=== PATIENT | male | born 1945 | race Caucasian/White ===

== ENCOUNTER 2018-09-01 10:21 | Outpatient (CLI) | payer MEDICARE, BC ==
--- NOTE | 2018-09-01 12:36 | CT ---
LOW DOSE CT CHEST FOR LUNG CANCER SCREENING: FINDINGS: There is a 5 mm nodule in the lingula. Minimal scarring is seen in the right mid lobe. No pleural o r pericardial effusions are seen. There are vascular calcifications without evidence of aneurysmal d ilatation of the abdominal aorta. A 1 cm right paratracheal lymph node is seen in the mediastinum. There are degenerative changes in the spine. IMPRESSION: Lung-RADS category 2-Benign appearance and behavior. Nodules with a very low likelihood of becoming clinically active cancer due to size. The probability of malignancy is less than 1%. RECOMMENDATIONS: Continue annual screening with LDCT in 12 months. POS: [facility]
== END 2018-09-01 10:22 | disposition home or self-care (01) ==
LOC: CT 10:21
PROVIDERS: ATTEND Family Medicine
DX: F17.210 Nicotine dependence, cigarettes, uncomplicated (principal); R91.8 Other nonspecific abnormal finding of lung field
CPT/HCPCS: G0297

== ENCOUNTER 2018-09-07 09:21 | Outpatient (CLI) | payer MEDICARE, BC ==
--- NOTE | 2018-09-07 11:25 | ULT ---
ABDOMINAL AORTIC ULTRASOUND WITH ROSADO SCALE AND DOPPLER COLOR FLOW IMAGING: Date: 09/07/18 CLINICAL INDICATION: Abdominal aortic aneurysm screening evaluation. FINDINGS: Sonographic evaluation using Rosado scale and Doppler color flow of the abdominal aorta does not reveal evidence of an aortic aneurysm. There is mild atherosclerotic irregularity. Abdominal aortic diamete r measures up to approximately 2.4 cm as demonstrated. IMPRESSION: No aneurysmal dilatation of the abdominal aorta is demonstrated. POS: [facility]
== END 2018-09-07 09:22 | disposition home or self-care (01) ==
LOC: BICULT 09:21
PROVIDERS: ATTEND Family Medicine
DX: Z13.6 Encounter for screening for cardiovascular disorders (principal)
CPT/HCPCS: 76775

== ENCOUNTER 2019-06-29 11:05 | Outpatient (CLI) | payer MEDICARE, BC ==
[2019-06-29] MEDS ORDERED: Iopamidol 370 76% 100 ML VIAL ONE (11:41)
--- NOTE | 2019-06-29 15:58 | CT ---
CT ANGIO OF CHEST PERFOREMD WITH INTRAVENOUS CONTRAST ENHANCEMENT WITH 3D RECONSTRUCTIONS: 06/29/19 HISTORY: Cough, shortness of breath, elevated D-dimer. COMPARISON: A 09/01/18 low dose lung scan. Patient has a history of nicotine dependence. There has been development of some patchy ground glass opacities in both upper lobe with more conflue nt parenchymal change having developed within the lingula. There is a mild left pleural effusion demo nstrated. There is some mild mediastinal adenopathy. This includes some paratracheal nodes, some of which are c alcified and prevascular nodes, this appears to be of fairly similar appearance to the prior study. Nodes and azygoesophageal recess are also noted and small hilar nodes are seen. The thoracic aorta is normal ion caliber. There is good pulmonary artery opacification and there is no CT evidence for pulmonary embolus. The visualized liver parenchyma shows no focal findings. The adrenal glands are partially visualized and have a slightly hyperplastic appearance. IMPRESSION: 1. No CT evidence for pulmonary embolus. 2. Patchy ground glass opacities in both lung weaver. These changes would suggest a pneumonic ty pe process. There is also a mild left pleural effusion. Changes are more confluent in the lingular re gion. POS: [facility]
== END 2019-06-29 11:06 | disposition home or self-care (01) ==
LOC: CT 11:05
PROVIDERS: ATTEND Physician Assistant
DX: R06.02 Shortness of breath (principal); R05 Cough; F17.200 Nicotine dependence, unspecified, uncomplicated; R79.1 Abnormal coagulation profile; R91.8 Other nonspecific abnormal finding of lung field
CPT/HCPCS: 71275; 80048; 85025; 85379; Q9967

== ENCOUNTER 2019-08-22 16:29 | Inpatient (IN) | payer MEDICARE, BC ==
--- NOTE | 2019-08-22 16:46 | RAD ---
Portable chest: HISTORY: Cough COMPARISON: none FINDINGS: Lung weaver are clear. Heart and mediastinum appear unremarkable. Vascularity is normal. Visualized osseous structures unremarkable. IMPRESSION: No acute finding
[2019-08-22 17:10] LABS: #Lymphocytes 0.9 thou/uL (1.20-3.40); #Monocytes 0.8 thou/uL (0.11-0.59); #Neutrophils 4.1 thou/uL (1.40-6.50); %Basophils 0.4 % (0.0-1.0); %Eosinophils 0.3 % (0.0-10.0); %Lymphocytes 15.2 % (21.0-51.0); %Monocytes 14.3 % (0.0-10.0); %Neutrophils 69.8 % (42.0-75.0); Hemoglobin 14.8 g/dL (14.0-18.0); Mean Corpuscular HGB CONC 34.2 g/dL (32.0-36.0); Mean Corpuscular Volume 93.8 fL (78.0-98.0); Mean Platelet Volume 8.1 fL (7.4-10.4); Platelet Count 168 thou/uL (130-400); RBC Distribution Width 11.8 % (11.5-14.5); Red Blood Cell (RBC) Count 4.62 mill/uL (4.70-6.10); White Blood Cell (WBC) Count 5.8 thou/uL (4.8-10.8)
[2019-08-22] MEDS ORDERED: cefTRIAXone\\ROCEPHIN 2 GM VIAL ONE (17:29)
[2019-08-22 17:37] LABS: ALT (SGPT) 22 U/L (8-55); AST (SGOT) 23 U/L (5-34); Albumin 4.7 g/dL (3.4-4.8); Alkaline Phosphatase 61 U/L (40-110); Anion Gap 15 mmol/L (10-20); BUN (Urea Nitrogen) 10 mg/dL (8.4-25.7); Bilirubin, Total 0.5 mg/dL (0.2-1.2); Calc. Creatinine Clearance 0 mL/min (70-130); Calcium 9.2 mg/dL (7.8-10.44); Carbon Dioxide 22 mmol/L (23-31); Chloride 99 mmol/L (98-107); Estimated GFR-MDRD 65; Globulin 2.9 g/dL (2.4-3.5); Glucose 116 mg/dL (83-110); Potassium 3.8 mmol/L (3.5-5.1); Protein, Total 7.6 g/dL (5.8-8.1); Sodium 132 mmol/L (136-145)
[2019-08-22 18:03] LABS: Bacteria/HPF None Seen HPF (None Seen); Bilirubin Negative (Negative); Blood, Urine 1+ (Negative); Clarity Clear (Clear); Glucose, Urine (Dipstick) Normal (Negative); Leukocyte Negative Leu/uL (Negative); Nitrite Negative (Negative); Protein, Urine (Dipstick) 70 mg/dL (Neg-Trace); RBC/HPF 0-3 HPF (0-3); Squamous Epithelial 0-3 HPF (0-3); Urobilinogen Normal mg/dL (Less than 2); WBC/HPF 0-3 HPF (0-3)
[2019-08-22 18:10] LABS: CKMB 0.7 ng/mL (0-6.6)
[2019-08-22] MEDS ORDERED: Aspirin 325 MG TAB ONE (18:22)
[2019-08-22] MEDS ORDERED: Azithromycin 500 MG VIAL ONE (18:24)
[2019-08-22] MEDS ORDERED: Sodium Chloride 0.9% 1,000 ML IV SCH ×2 (19:38→19:46)
[2019-08-22] MEDS ORDERED: HYDROcodone/Acetaminophen 5/325 mg Tablet PO PRN ×2 (19:38)
[2019-08-22] MEDS ORDERED: Acetaminophen 325 MG TAB PO PRN (19:38)
[2019-08-22] MEDS ORDERED: Ondansetron PF 4 MG/2 ML Vial IVP PRN ×2 (19:38→19:46)
[2019-08-22] MEDS ORDERED: Ondansetron ODT 4 MG TAB SL PRN (19:38)
[2019-08-22] MEDS ORDERED: Guaifenesin DM 100-10/5 ML UDCUP PO PRN (19:46)
[2019-08-22] MEDS ORDERED: Ondansetron ODT 4 MG TAB PO PRN (19:46)
[2019-08-22] MEDS ORDERED: Senokot S 8.6-50 MG TAB PO PRN (19:46)
[2019-08-22] MEDS ORDERED: Acetaminophen 650 MG Suppository PR PRN (19:46)
[2019-08-22 19:51] VITALS: BMI 27.1
--- NOTE | 2019-08-22 19:55 | HP ---
PRIMARY CARE PHYSICIAN: Dr. Laurie Wong. CHIEF COMPLAINT: Fevers, chills, and cough. HISTORY OF PRESENT ILLNESS: This is a 74-year-old white male with a known history of moderate aortic stenosis, hypertension, and hyperlipidemia, who presents with about a 1-week history of cough, congestion, and body aches. He had not noticed any fevers at home, but today, he started to become a little bit confused and aching all over. brought him into an urgent care. There, he was noted to have fever, chills, tachycardia, and was flu A positive. The patient was transferred to our emergency room here. Here, he was found to be room air hypoxic, was breathing better on oxygen. The ER doctor noted crackles in the right mid lung and bilateral bases. Chest x-ray was clear, but there was concern for possible development of a complicating pneumonia, so the patient is being admitted to the hospital. History is taken from the patient, but confirmed with his , who is at the bedside as he is a little slow to respond and mildly confused, although still oriented to where he is, the date, and the situation. PAST MEDICAL HISTORY: 1. Aortic valve stenosis, progressed to moderate recently, followed by Dr. Bhakta. 2. Hypertension. 3. Hyperlipidemia. PAST SURGICAL HISTORY: 1. Left carotid endarterectomy. 2. Colonoscopy with previous polypectomy. 3. Surgery for bleeding rectal fissures. SOCIAL HISTORY: The patient is a smoker, smokes 1 pack per day. He does drink some beer and liquor. No drug use. He is and lives with his . He is a full code. His 's name is Olga Moise. She is his medical decision maker. FAMILY HISTORY: Dad had emphysema and hypertension. ALLERGIES: NO KNOWN DRUG ALLERGIES. CURRENT MEDICATIONS: 1. Aspirin 81 mg daily. 2. Amlodipine 10 mg daily. 3. Gabapentin 100 mg at night. 4. Livalo 2 mg daily. 5. Vitamin D3 of 1000 units daily. 6. Magnesium, unknown dose daily. 7. Multivitamin daily. 8. Statin, unknown name and dose once daily. REVIEW OF SYSTEMS: CONSTITUTIONAL: See HPI. EYES: No double vision or blurred vision currently. He did have a little bit of blurred vision earlier in the day. ENT: He has had a mild amount of nasal drip and a mild sore throat. CARDIOVASCULAR: No chest pain. No palpitations or racing heart. PULMONARY: See HPI. No wheezing or chest tightness. Gastrointestinal: No abdominal pain. No nausea or vomiting. He has had decreased appetite, not willing to eat anything at all today. He did drink some coffee. No diarrhea or constipation. GENITOURINARY: No dysuria or hematuria. MUSCULOSKELETAL: Generalized muscle aches. SKIN: No rashes or lesions he has noted. NEUROLOGIC: No numbness, tingling, or focal weakness. Just generalized weakness and fatigue. PSYCHIATRIC: The patient is feeling a little confused, but no hallucinations. PHYSICAL EXAMINATION: VITAL SIGNS: Blood pressure 126/81, pulse 108, respirations 20, temperature currently 100.2, O2 saturations 93% on 2 L. GENERAL: This is a well-developed, well-nourished, elderly male, in no acute distress. HEENT: Pupils are equal, round, and reactive to light. Oropharynx is clear without lesions, erythema, or exudate. LUNGS: The patient has some scattered crackles, worse on the right; especially in the right mid lung, there are a few crackles that were not present on the left, but good air movement throughout. He does have intermittent cough. ABDOMEN: Soft. Nontender to palpation. Normoactive bowel sounds. No hepatosplenomegaly or other masses. EXTREMITIES: No clubbing, cyanosis, or edema. SKIN: No rashes or lesions noted. NEUROLOGIC: The patient is moving all extremities equally and has no facial droop. PSYCHIATRIC: He is a little bit restless. He is trying to sleep, but easily arousable. He is oriented to person, to place, to situation, and to the date, month, and year. LABORATORY DATA: CBC within normal limits. Complete metabolic panel notable for sodium of 132, carbon dioxide of 22, glucose of 116. The rest was normal. Lactic acid was negative. Creatine kinase was normal. Troponin was indeterminate at 0.038. CK-MB was negative. Brain natriuretic peptide was negative. Urinalysis was negative for infection. IMAGING STUDIES: Chest x-ray, I did review the chest x-ray along with the radiologist's report. It does show no evidence of infiltrate or edema in the lungs. Normal cardiac silhouette. Normal chest x-ray. ASSESSMENT: 1. Influenza A with sepsis. The patient is getting some confusion from this also. Clinically, dehydrated on admission, but now, much better after fluids. The patient is having symptoms for a week, but given the severity of symptoms, while he is being hospitalized, we will go ahead and start him on oseltamivir. There is a concern for possible development of pneumonia with the findings on physical exam in his lung weaver. Given that his chest x-ray is negative and white count is normal, I suspect that these findings are due to the influenza, but we will recheck a chest x-ray in the morning to see if something fluffs out. If nothing fluffs out, we do not need to continue the antibiotics started in the emergency room and can just continue the supportive care and Tamiflu. 2. Moderate aortic stenosis. No evidence of volume overload at this time. 3. Hypertension. We will resume the patient's home blood pressure medications. 4. Gastrointestinal prophylaxis. Put the patient on Pepcid twice a day. 5. Deep venous thrombosis prophylaxis. We will put the patient on Lovenox while he is in the hospital. 6. Acute metabolic encephalopathy, mild, likely due to the flu, fever, and sepsis. We will monitor for worsening or improvement with treatment. CODE STATUS: The patient is a full code. His medical decision maker is his , Olga Moise. Job ID: [id number]
[2019-08-22] MEDS ORDERED: Oseltamivir 75 MG CAP PO SCH (21:00)
[2019-08-22] MEDS: Famotidine 20 MG TAB PO SCH (21:01)
[2019-08-22] MEDS: Oseltamivir 75 MG CAP PO SCH (21:02)
[2019-08-23] MEDS ORDERED: Melatonin 3 MG TAB PO SCH (00:15)
[2019-08-23] MEDS: Acetaminophen 325 MG TAB PO PRN ×3 (00:17→16:13)
[2019-08-23] MEDS ORDERED: Furosemide 40 MG/4 ML VIAL ONE (00:36)
[2019-08-23 00:42] LABS: #Lymphocytes 1.1 thou/uL (1.20-3.40); #Monocytes 0.7 thou/uL (0.11-0.59); #Neutrophils 6.1 thou/uL (1.40-6.50); %Basophils 0.2 % (0.0-1.0); %Eosinophils 0.1 % (0.0-10.0); %Lymphocytes 14.2 % (21.0-51.0); %Monocytes 9.2 % (0.0-10.0); %Neutrophils 76.2 % (42.0-75.0); Hemoglobin 14.3 g/dL (14.0-18.0); Mean Corpuscular HGB CONC 34.5 g/dL (32.0-36.0); Mean Corpuscular Hemoglobin 32.4 pg (27.0-31.0); Mean Corpuscular Volume 93.9 fL (78.0-98.0); Platelet Count 156 thou/uL (130-400); RBC Distribution Width 11.7 % (11.5-14.5); Red Blood Cell (RBC) Count 4.42 mill/uL (4.70-6.10)
[2019-08-23 00:54] LABS: CO2 Tension 27.1 mmHg (35.0-45.0); pH, Arterial 7.47 (7.35-7.45)
[2019-08-23 00:56] LABS: Actual Bicarbonate (HCO3a) 19.4 mEq/L (22-28); Base Excess (BEa) -2.8 mEq/L (-2.0 to +3.0)
[2019-08-23 00:56] LABS: Lactic Acid 1.1 mmol/L (0.5-2.2)
--- NOTE | 2019-08-23 00:56 | PDOC.EVN ---
Event Note - Event Note Event Note: RN called - Pt in resp distress. CXR/ABG reviewed. Will transfer to [facility] for NIPPV Update - Cardizem drip started for Afib with RVR - Later dced due to sinus pauses
[2019-08-23 00:57] LABS: Calcium, Ionized 1.04 mmol/L (1.12-1.30); Potassium - ABG Lab 3.71 mmol/L (3.70-5.30); Puncture Site LBR
[2019-08-23 00:58] LABS: ALV-art Gradient 261.365 (0-20)
[2019-08-23 01:02] LABS: Anion Gap 13 mmol/L (10-20); BUN (Urea Nitrogen) 9 mg/dL (8.4-25.7); Calc. Creatinine Clearance 97 mL/min (70-130); Calcium 8.3 mg/dL (7.8-10.44); Carbon Dioxide 21 mmol/L (23-31); Chloride 101 mmol/L (98-107); Estimated GFR-MDRD 85; Glucose 111 mg/dL (83-110); Magnesium 1.8 mg/dL (1.6-2.6); Potassium 3.8 mmol/L (3.5-5.1); Sodium 131 mmol/L (136-145)
[2019-08-23] MEDS ORDERED: Norepinephrine 8 MG/0.9% NS 0 ML ONE (01:55)
[2019-08-23] MEDS: Sodium Chloride 0.9% 1,000 ML IV SCH (02:06)
[2019-08-23] MEDS ORDERED: Diltiazem 125 MG in Sodium Chloride 0.9% 100 ML IVPB SCH (03:45)
[2019-08-23] MEDS ORDERED: Magnesium 2 GM/50 ML 2 GM in Premix Bag 1 BAG IVPB SCH (03:45)
[2019-08-23 04:02] LABS: #Monocytes 0.8 thou/uL (0.11-0.59); #Neutrophils 5.7 thou/uL (1.40-6.50); %Basophils 0.3 % (0.0-1.0); %Eosinophils 0.1 % (0.0-10.0); %Lymphocytes 13.6 % (21.0-51.0); %Monocytes 10.8 % (0.0-10.0); %Neutrophils 75.1 % (42.0-75.0); Hemoglobin 14.2 g/dL (14.0-18.0); Mean Corpuscular HGB CONC 33.5 g/dL (32.0-36.0); Mean Corpuscular Hemoglobin 31.8 pg (27.0-31.0); Mean Corpuscular Volume 94.9 fL (78.0-98.0); Platelet Count 152 thou/uL (130-400); RBC Distribution Width 11.7 % (11.5-14.5); Red Blood Cell (RBC) Count 4.46 mill/uL (4.70-6.10); White Blood Cell (WBC) Count 7.6 thou/uL (4.8-10.8)
[2019-08-23 04:28] LABS: Anion Gap 11 mmol/L (10-20); BUN (Urea Nitrogen) 9 mg/dL (8.4-25.7); Calc. Creatinine Clearance 87 mL/min (70-130); Calcium 8.1 mg/dL (7.8-10.44); Carbon Dioxide 25 mmol/L (23-31); Chloride 100 mmol/L (98-107); Estimated GFR-MDRD 74; Glucose 121 mg/dL (83-110); Potassium 3.7 mmol/L (3.5-5.1); Sodium 132 mmol/L (136-145)
[2019-08-23 06:29] LABS: CKMB 3.5 ng/mL (0-6.6)
[2019-08-23] MEDS ORDERED: Atropine Sulfate 1 mg/1 ml Vial IVP PRN (06:36)
--- NOTE | 2019-08-23 07:43 | PDOC.HOSPP ---
- Subjective Encounter Date: 08/23/19 Encounter Time: 07:42 Subjective: Mr. Moise was seen today in follow-up of influenza and atrial fibrillation. He was moved to the ICU due to AFIB with RVR. After being placed on Cardizem he developed long pauses. Currently he is off cardizem srip, and his heart rate is in the 80's and 90's. - Objective Vital Signs & Weight: Vital Signs (12 hours) Temp Pulse Resp BP Pulse Ox 08/23/19 04:00 99.2 F 08/23/19 02:42 77 26 H 98 08/23/19 01:17 99.2 F 95 08/23/19 00:00 99.2 F 93 20 119/55 L 93 L 08/22/19 20:05 96 Weight Weight 199 lb 14.4 oz Most Recent Monitor Data Heart Rate from ECG 97 NIBP 112/77 NIBP BP-Mean 88 Respiration from ECG 28 SpO2 98 I&O: 08/22/19 08/23/19 08/24/19 06:59 06:59 06:59 Intake Total 376.1 Output Total 725 Balance -348.9 Result Diagrams: 08/23/19 03:29 08/23/19 03:29 Hospitalist ROS - Medication Medications: Active Medications Generic Name Dose Route Start Last Admin Trade Name Freq PRN Reason Stop Dose Admin Acetaminophen 650 mg 08/22/19 19:46 08/23/19 00:17 Tylenol PO 650 mg Q4H PRN Administration Headache/Fever/Mild Pain (1-3) Albuterol/Ipratropium 3 ml 08/23/19 02:30 08/23/19 02:41 Duoneb NEB 3 ml [id number] CARLO Administration Famotidine 20 mg 08/22/19 21:00 08/22/19 21:01 Pepcid PO 20 mg BID CARLO Administration Guaifenesin/Dextromethorphan 15 ml 08/22/19 19:46 08/22/19 22:30 Robitussin Dm PO 15 ml Q4H PRN Administration Cough Sodium Chloride 1,000 mls @ 30 mls/hr 08/23/19 00:55 08/23/19 02:06 Normal Saline 0.9% IV 1,000 mls .Q24H CARLO Administration Oseltamivir Phosphate 75 mg 08/22/19 21:00 08/22/19 21:02 Tamiflu PO 08/27/19 09:01 75 mg BID CARLO Administration Sodium Chloride 10 ml 08/22/19 21:00 08/22/19 21:02 Flush - Normal Saline IVF Not Given Q12HR CARLO - Exam Eye: PERRL Heart: RRR, II/IV Respiratory: CTAB (with the exception of rales at the bases) Gastrointestinal: soft, non-tender, non-distended, normal bowel sounds, no palpable masses, no hepatomegaly, no splenomegaly Extremities: no cyanosis, no clubbing, no edema Skin: no rashes Hosp A/P (1) Influenza A Code(s): J10.1 - FLU DUE TO OTH IDENT INFLUENZA VIRUS W OTH RESP MANIFEST Status: Acute (2) Acute respiratory failure with hypoxia Code(s): J96.01 - ACUTE RESPIRATORY FAILURE WITH HYPOXIA Status: Acute (3) Atrial fibrillation Code(s): I48.91 - UNSPECIFIED ATRIAL FIBRILLATION Status: Acute (4) Hypertension Code(s): I10 - ESSENTIAL (PRIMARY) HYPERTENSION Status: Acute (5) Aortic stenosis Code(s): I35.0 - NONRHEUMATIC AORTIC (VALVE) STENOSIS Status: Acute - Plan * Acute respiratory failure due to influenza A- continue Tamiflu * Continue Bipap as needed as well as duonebs * Atrial Fibrillation- he is now off Cradizem ad his heart rate is stable- this was likey a result of a combination of the respiratory failure from influenza, and the duonebs, however places him at risk for AFIB- will consult his Product Marketing Director * HTN- blood pressure is stable
[2019-08-23] MEDS: Enoxaparin Sodium 40 MG/0.4 ML SYRINGE SC SCH (08:45)
[2019-08-23] MEDS: Famotidine 20 MG TAB PO SCH ×2 (08:46→20:32)
[2019-08-23] MEDS: Oseltamivir 75 MG CAP PO SCH ×2 (08:46→20:32)
[2019-08-23] MEDS ORDERED: FLU VACC TS2019-20(65YR UP)/PF 180 MCG/0.5 ML SYRINGE IM ONE (09:00)
--- NOTE | 2019-08-23 09:51 | RAD ---
PORTABLE CHEST: Date: 08/23/2019 PROVIDED CLINICAL HISTORY: Cough. FINDINGS: Comparison with 08/22/2019 Cardiac and mediastinal silhouette is unchanged in appearance. Interval development of prominence of the pulmonary vasculature and pulmonary interstitium. Bilateral parahilar air space disease. No pleur al fluid or pneumothorax apparent. IMPRESSION: Development of bilateral parahilar air space disease. Findings may reflect alveolar edema. Follow-up is recommended. POS: [facility]
[2019-08-23 10:20] LABS: Magnesium 1.9 mg/dL (1.6-2.6); Phosphorus 3.4 mg/dL (2.3-4.7)
--- NOTE | 2019-08-23 10:32 | CON ---
DATE OF CONSULTATION: 08/23/2019 REASON FOR CONSULTATION: Tachycardia-bradycardia syndrome. HISTORY OF PRESENT ILLNESS: Mr. Moise is a 74-year-old man, who was admitted to the hospital with malaise, subjective fever, and found to have influenza A. The patient while he is here, he has been having tachycardia-bradycardia. The patient has a history of moderate aortic stenosis and history of tobacco use. The patient was started on intravenous Cardizem last night, but got very bradycardic that was stopped, but still having long pauses. CURRENT MEDICATIONS: He is on: 1. Tamiflu. 2. Pepcid. 3. DuoNeb. 4. Robitussin. 5. Atropine if needed. 6. Lovenox 40 mg a day. REVIEW OF SYSTEMS: CONSTITUTIONAL: Positive for weakness, fatigue, and malaise. VISION: No changes. HEARING: No changes. PULMONARY: Positive for cough. No wheezing. CARDIAC: No chest pain. GASTROINTESTINAL: No nausea, vomiting, or diarrhea. SKIN: No rashes. NEUROLOGIC: No unilateral weakness or numbness. PSYCHIATRIC: No unusual depression or anxiety. HEMATOLOGIC: No unusual bruising. GENITOURINARY: No burning with urination. PHYSICAL EXAMINATION: GENERAL: This is an awake and alert gentleman. He says he does not feel well. VITAL SIGNS: Blood pressure is 130 systolic and pulse is variable, right now it is 86 sinus and occasionally goes into atrial fibrillation and would also may be atrial flutter, and also has long pauses over 5 seconds at times. HEENT: Eyes, sclerae nonicteric. Mouth, mucous membranes moist. NECK: Supple. No lymphadenopathy. LUNGS: Clear. CARDIAC: Normal S1. Normal S2. There is a 2 to 3/6 systolic murmur. There is no rub or gallop. ABDOMEN: Soft and nontender. EXTREMITIES: Warm and dry. No clubbing, cyanosis, or edema. LABORATORY DATA: Troponin level 0.199 like demand ischemia, type 2 non-STEMI. EKG as outlined above, has a right bundle-branch block pattern. Also left anterior fascicular block. ASSESSMENT: 1. Influenza A. 2. Tachycardia-bradycardia syndrome. 3. Aortic stenosis, moderate. PLAN: 1. These old pacemaker was put in a backup mode at rate of 36. The catheter is well with the lowest output. 2. At some point, we will need pacemaker insertion. Would like to see the influenza improved and make sure, he is not febrile. We will also notify Dr. Ramos. Job ID: [id number]
--- NOTE | 2019-08-23 14:22 | CON ---
DATE OF CONSULTATION: HISTORY OF PRESENT ILLNESS: Xavier Moise is a 74-year-old gentleman, who apparently went to see his primary care physician and was found to have influenza. He was sent to the hospital here. He has fever, chills, shortness of breath, and cough. He sees Dr. Gonzalez for sleep apnea, recently diagnosed, some 6 months ago. He is now in the ICU after he had a run of SVT. He was placed on Cardizem, subsequently developed multiple long pauses. The Cardizem was discontinued. Cardiology is pending to see the patient. Otherwise, he is denying any pain or discomfort right now. He is awake, alert, and responsive. PAST MEDICAL HISTORY: Pertinent for leaky aortic valve, history of pain, sleep apnea, and history of tobacco abuse. PAST SURGICAL HISTORY: Otherwise, left carotid, colonoscopy, and rectal surgery. SOCIAL HISTORY: Alcohol, beer. Smoke a pack a day. HOME MEDICATIONS: Include; 1. Gabapentin. 2. Amlodipine. 3. Aspirin. 4. Livalo. 5. Zetia. 6. Vitamin. ALLERGIES: NONE. REVIEW OF SYSTEMS: Otherwise, unremarkable. PHYSICAL EXAMINATION: GENERAL: On examination, he is awake, alert, and responsive. VITAL SIGNS: Pulse is 108, irregularly irregular; blood pressure 112/68; saturations are 96% on 2 L; respiratory rate is 27. CHEST: Reveal no wheezing or crackles. CARDIAC: Normal S1 and S2. No gallops. ABDOMEN: No masses. DIAGNOSTIC DATA: White count 7000, H and H of 13 and 42, and platelet count 152. His pO2 was 47, pCO2 of 27, pH of 7.47 on 2 L nasal O2. The chest x-ray is clear. Sodium 132. Lytes are normal. BNP is unremarkable. IMPRESSION: 1. Status post supraventricular tachycardia, Cardizem causing hypotension, long pauses. 2. Aortic stenosis. 3. Tobacco abuse. 4. Alcohol abuse. 5. Atrial fibrillation. 6. Influenza A. PLAN: He is on Tamiflu, supportive care. Await input from Cardiology. This is a consultation note, 70 minutes, 50% direct patient care. Job ID: [id number]
[2019-08-23] MEDS: Melatonin 3 MG TAB PO SCH (20:33)
[2019-08-24] MEDS: Sodium Chloride 0.9% 1,000 ML IV SCH (01:16)
[2019-08-24] MEDS: Acetaminophen 325 MG TAB PO PRN ×2 (07:52→20:23)
[2019-08-24] MEDS: Oseltamivir 75 MG CAP PO SCH ×2 (08:56→20:23)
[2019-08-24] MEDS: Famotidine 20 MG TAB PO SCH ×2 (09:00→20:24)
[2019-08-24] MEDS: Enoxaparin Sodium 40 MG/0.4 ML SYRINGE SC SCH (09:00)
--- NOTE | 2019-08-24 09:39 | PRG ---
DATE OF SERVICE: 08/24/2019 SUBJECTIVE: This morning, he is awake, alert, and responsive. No pain. No shortness of breath. OBJECTIVE: VITAL SIGNS: Pulse is 79, blood pressure 140/90, sats are 99% on room air, and respiratory rate . GENERAL: Awake, alert, and responsive. CHEST: Decreased breath sounds. No wheezing. CARDIAC: Normal S1 and S2. No gallops. ABDOMEN: No masses. IMPRESSION: 1. Influenza A, on Tamiflu, stable. 2. Tachy-linda syndrome. 3. Aortic stenosis. PLAN: Pacemaker apparently is to be scheduled today. Continue Tamiflu. Continue supportive care, PT. Disposition as per Cardiology. Job ID: [id number]
[2019-08-24] MEDS ORDERED: CEFAZOLIN 1 GM VIAL ONE (11:46)
[2019-08-24] MEDS ORDERED: Gentamicin 80 MG/2 ML VIAL ONE (11:46)
[2019-08-24] MEDS ORDERED: Midazolam HCl 2 mg/2 ml Vial ONE (12:36)
[2019-08-24] MEDS ORDERED: Fentanyl 100 MCG/2 ML VIAL ONE (12:42)
[2019-08-24] MEDS ORDERED: Acetaminophen/Codeine 30-300mg Tablet PO PRN (13:36)
--- NOTE | 2019-08-24 15:45 | RAD ---
EXAM: Single view of the chest HISTORY: Cough COMPARISON: 08/22/2019 FINDINGS: Single view of the chest shows a normal sized cardiomediastinal silhouette. A left clavian pacemaker seen with its leads in the right atrium and ventricle. Scattered airspace opacities are seen throughout the right lung. The bones are unremarkable. IMPRESSION: Diffuse right pulmonary infiltrates.
--- NOTE | 2019-08-24 17:38 | PDOC.HOSPP ---
- Subjective Encounter Date: 08/24/19 Encounter Time: 17:36 Subjective: Mr. Moise was seen today in follow-up of influenza A and tachy-linda syndrome.He does not have any complaints. - Objective Vital Signs & Weight: Vital Signs (12 hours) Temp Pulse Resp Pulse Ox 08/24/19 16:00 99.5 F 08/24/19 15:00 80 15 95 08/24/19 11:25 70 22 H 98 08/24/19 08:00 99.5 F 97 08/24/19 07:35 78 21 H 98 Weight Weight 195 lb 12.328 oz Most Recent Monitor Data Heart Rate from ECG 81 NIBP 135/71 NIBP BP-Mean 92 Respiration from ECG 20 SpO2 96 I&O: 08/23/19 08/24/19 08/25/19 06:59 06:59 06:59 Intake Total 376.1 1397 200 Output Total 725 2470 600 Balance -348.9 -1073 -400 Result Diagrams: 08/23/19 03:29 08/23/19 03:29 Hospitalist ROS - Medication Medications: Active Medications Generic Name Dose Route Start Last Admin Trade Name Freq PRN Reason Stop Dose Admin Acetaminophen 650 mg 08/22/19 19:46 08/24/19 07:52 Tylenol PO 650 mg Q4H PRN Administration Headache/Fever/Mild Pain (1-3) Albuterol/Ipratropium 3 ml 08/23/19 02:30 08/24/19 15:00 Duoneb NEB 3 ml [id number] CARLO Administration Enoxaparin Sodium 40 mg 08/23/19 09:00 08/24/19 09:00 Lovenox SC Not Given 0900 CARLO Famotidine 20 mg 08/22/19 21:00 08/24/19 09:00 Pepcid PO Not Given BID CARLO Guaifenesin/Dextromethorphan 15 ml 08/22/19 19:46 08/22/19 22:30 Robitussin Dm PO 15 ml Q4H PRN Administration Cough Melatonin 3 mg 08/23/19 21:00 08/23/19 20:33 Melatonin PO 3 mg HS CARLO Administration Oseltamivir Phosphate 75 mg 08/22/19 21:00 08/24/19 08:56 Tamiflu PO 08/27/19 09:01 75 mg BID CARLO Administration Sodium Chloride 10 ml 08/22/19 21:00 08/24/19 09:00 Flush - Normal Saline IVF Not Given Q12HR CARLO - Exam Eye: PERRL Heart: RRR, no gallops, no rubs, normal peripheral pulses, murmur present, III/ IV Respiratory: CTAB, no wheezes, no rales, no ronchi, normal chest expansion Gastrointestinal: soft, non-tender, non-distended, normal bowel sounds, no palpable masses, no hepatomegaly Extremities: no cyanosis, no edema Hosp A/P (1) Influenza A Code(s): J10.1 - FLU DUE TO OTH IDENT INFLUENZA VIRUS W OTH RESP MANIFEST Status: Acute (2) Acute respiratory failure with hypoxia Code(s): J96.01 - ACUTE RESPIRATORY FAILURE WITH HYPOXIA Status: Acute (3) Atrial fibrillation Code(s): I48.91 - UNSPECIFIED ATRIAL FIBRILLATION Status: Acute (4) Hypertension Code(s): I10 - ESSENTIAL (PRIMARY) HYPERTENSION Status: Acute (5) Aortic stenosis Code(s): I35.0 - NONRHEUMATIC AORTIC (VALVE) STENOSIS Status: Acute - Plan * Acute respiratory failure due to influenza A- continue Tamiflu * AFIB with sick sinus syndrome- he is s/p pace-maker placement * HTN- blood pressure is stable * Agree with transfer to [facility]
[2019-08-24] MEDS: Ezetimibe 10 MG TAB PO SCH (20:24)
[2019-08-24] MEDS: Amlodipine 10 MG TAB PO SCH (20:24)
[2019-08-24] MEDS: Gabapentin 300 MG CAP PO SCH (20:24)
[2019-08-24] MEDS: Atorvastatin Calcium 10 MG TAB PO SCH (20:25)
[2019-08-24] MEDS: Melatonin 3 MG TAB PO SCH (20:26)
--- NOTE | 2019-08-24 21:39 | CCL ---
Date of procedure: 08/23/19 INDICATIONS: This is a 74-year-old gentleman with tachy/linda syndrome with significant pauses. He was advised to undergo dual chamber pacemaker insertion. He was taken to the cardiac greenhouse laborer where he underwent the procedure today without difficulties or complications. He was implanted with a dual chamber pacemake r from [employer], an Melania MRI compatible device with atrial therapies. The upper rate was set at 120 and the lower rate was set at 60. There were two screw-in leads placed which were fixed, one in the atrium and one in the ventricle. There were no complications or difficulties encountered. He was giv en IV versed as well as fentanyl for the procedure due to back pain and also due to anxiety. Througho ut the procedure, he was monitored by an independent observer for heart rate, blood pressure and O2 s aturation and remained stable throughout the procedure. There were no complications or difficulties e ncountered. Total sedation time was 30 minutes.
[2019-08-25 08:17] LABS: Anion Gap 13 mmol/L (10-20); BUN (Urea Nitrogen) 10 mg/dL (8.4-25.7); Calc. Creatinine Clearance 109 mL/min (70-130); Calcium 8.5 mg/dL (7.8-10.44); Carbon Dioxide 23 mmol/L (23-31); Chloride 99 mmol/L (98-107); Estimated GFR-MDRD Greater than 90; Glucose 114 mg/dL (83-110); Potassium 4.3 mmol/L (3.5-5.1); Sodium 131 mmol/L (136-145)
--- NOTE | 2019-08-25 08:41 | PRG ---
DATE OF SERVICE: 08/25/2019 SUBJECTIVE: Mr. Moise is doing better today. He is back in atrial fibrillation with a rate of 120, but he is asymptomatic with that. OBJECTIVE: VITAL SIGNS: His blood pressure 128/60. Pulse 120, it is irregular. LUNGS: Clear. CARDIAC: Irregularly irregular. ABDOMEN: Soft and nontender. EXTREMITIES: There is no edema. ASSESSMENT: 1. Paroxysmal atrial fibrillation. 2. Episodes of sick sinus syndrome with pauses, status post pacemaker. 3. Influenza, improved. PLAN: 1. Add Cardizem. 2. We discussed the other medicines such as Multaq. He says his insurance coverage is not very good. He does not get good to afford that. 3. Probably, go home tomorrow on metoprolol and Cardizem for rate control. We will give him some samples at least of anticoagulants to take for a while. We would hold off on that now as he just had a pacemaker and would be at high risk of getting a hematoma. Job ID: [id number]
[2019-08-25] MEDS: Oseltamivir 75 MG CAP PO SCH ×2 (08:57→21:20)
[2019-08-25] MEDS: Famotidine 20 MG TAB PO SCH ×2 (08:57→21:19)
[2019-08-25] MEDS: Enoxaparin Sodium 40 MG/0.4 ML SYRINGE SC SCH (08:57)
--- NOTE | 2019-08-25 09:48 | PRG ---
DATE OF SERVICE: 08/25/2019 SUBJECTIVE: This morning, the patient is awake, alert, and responsive. He said he is having difficulty breathing when he swallowing. OBJECTIVE: VITAL SIGNS: His temperature 97, pulse 126, respirations 20, saturations 99% on 2 L, and blood pressure 128/61. GENERAL: Status post pacemaker. CHEST: Decreased breath sounds. No wheezing. CARDIAC: Normal S1 and S2. No gallops. ABDOMEN: No masses. LABORATORY DATA: Lab was normal. Sodium is 131. X-ray post pacemaker shows slight cephalization with no other obvious infiltrates. ASSESSMENT: Influenza A. Pacemaker disposition as per Cardiology. Tamiflu for 5 days. Neb treatments as needed. Outpatient sleep study at some stage. Job ID: [id number]
--- NOTE | 2019-08-25 11:13 | PDOC.HOSPP ---
- Subjective Encounter Date: 08/25/19 Encounter Time: 11:12 Subjective: Mr. Moise was seen today in follow-up of influenza and sick sinus syndrome. He does not have any complaints. today. - Objective Vital Signs & Weight: Vital Signs (12 hours) Temp Pulse Resp BP BP Pulse Ox 08/25/19 08:57 126 H 128/61 08/25/19 07:56 97.8 F 126 H 20 128/61 93 L 08/25/19 07:52 93 L 08/25/19 07:50 85 20 93 L 08/25/19 03:09 99 F 77 20 132/63 96 08/25/19 02:15 85 24 H 98 08/25/19 02:14 82 24 H 96 Weight Weight 191 lb 6.4 oz Most Recent Monitor Data Heart Rate from ECG 87 NIBP 115/60 NIBP BP-Mean 78 Respiration from ECG 25 SpO2 92 I&O: 08/24/19 08/25/19 08/26/19 06:59 06:59 06:59 Intake Total 1397 200 Output Total 2470 650 Balance -1073 -450 Result Diagrams: 08/23/19 03:29 08/25/19 07:53 Hospitalist ROS - Medication Medications: Active Medications Generic Name Dose Route Start Last Admin Trade Name Freq PRN Reason Stop Dose Admin Acetaminophen 650 mg 08/22/19 19:46 08/24/19 20:23 Tylenol PO 650 mg Q4H PRN Administration Headache/Fever/Mild Pain (1-3) Acetaminophen/Codeine Phosphate 2 tab 08/24/19 13:36 08/25/19 08:56 Tylenol #3 PO 2 tab Q4H PRN Administration Moderate Pain (4-6) Amlodipine Besylate 10 mg 08/24/19 21:00 08/24/19 20:24 Norvasc PO 10 mg QPM CARLO Administration Atorvastatin Calcium 10 mg 08/24/19 21:00 08/24/19 20:25 Lipitor PO Not Given HS [facility] Diltiazem HCl 120 mg 08/25/19 09:00 08/25/19 08:57 Cardizem Cd PO 120 mg DAILY CARLO Administration Ezetimibe 10 mg 08/24/19 21:00 08/24/19 20:24 Zetia PO 10 mg QPM CARLO Administration Enoxaparin Sodium 40 mg 08/23/19 09:00 08/25/19 08:57 Lovenox SC 40 mg 0900 CARLO Administration Famotidine 20 mg 08/22/19 21:00 08/25/19 08:57 Pepcid PO 20 mg BID CARLO Administration Gabapentin 300 mg 08/24/19 21:00 08/24/19 20:24 Neurontin PO 300 mg QPM CARLO Administration Guaifenesin/Dextromethorphan 15 ml 08/22/19 19:46 08/22/19 22:30 Robitussin Dm PO 15 ml Q4H PRN Administration Cough Melatonin 3 mg 08/23/19 21:00 08/24/19 20:26 Melatonin PO 3 mg HS CARLO Administration Metoprolol Succinate 25 mg 08/25/19 09:00 08/25/19 08:57 Toprol Xl PO 25 mg DAILY CARLO Administration Oseltamivir Phosphate 75 mg 08/22/19 21:00 08/25/19 08:57 Tamiflu PO 08/27/19 09:01 75 mg BID CARLO Administration Sodium Chloride 10 ml 08/22/19 21:00 08/25/19 08:58 Flush - Normal Saline IVF 10 ml Q12HR CARLO Administration - Exam Eye: PERRL Heart: RRR, no murmur, murmur present, III/IV Respiratory: CTAB, no wheezes, no rales, no ronchi, normal chest expansion, no tachypnea, normal percussion Gastrointestinal: soft, non-tender, non-distended, normal bowel sounds, no hepatomegaly, no splenomegaly Extremities: 1+ LE edema Hosp A/P (1) Influenza A Code(s): J10.1 - FLU DUE TO OTH IDENT INFLUENZA VIRUS W OTH RESP MANIFEST Status: Acute (2) Acute respiratory failure with hypoxia Code(s): J96.01 - ACUTE RESPIRATORY FAILURE WITH HYPOXIA Status: Acute (3) Atrial fibrillation Code(s): I48.91 - UNSPECIFIED ATRIAL FIBRILLATION Status: Acute (4) Hypertension Code(s): I10 - ESSENTIAL (PRIMARY) HYPERTENSION Status: Acute (5) Aortic stenosis Code(s): I35.0 - NONRHEUMATIC AORTIC (VALVE) STENOSIS Status: Acute - Plan * Acute respiratory failure due to influenza A- continue Tamiflu * AFIB with sick sinus syndrome- his heart rate is elevated- he does not feel he can afford Amiodarone- he has been placed on Cardizem and Metoprolol for rate control * HTN- blood pressure is stable * Hopefully home tomorrow
[2019-08-25] MEDS ORDERED: Aspirin 81 mg Enteric Coated Tablet PO SCH (21:00)
[2019-08-25] MEDS: Atorvastatin Calcium 10 MG TAB PO SCH (21:19)
[2019-08-25] MEDS: Amlodipine 10 MG TAB PO SCH (21:19)
[2019-08-25] MEDS: Ezetimibe 10 MG TAB PO SCH (21:19)
[2019-08-25] MEDS: Gabapentin 300 MG CAP PO SCH (21:19)
[2019-08-25] MEDS: Melatonin 3 MG TAB PO SCH (21:20)
[2019-08-26] MEDS: Famotidine 20 MG TAB PO SCH (08:59)
[2019-08-26] MEDS: Oseltamivir 75 MG CAP PO SCH (09:00)
[2019-08-26] MEDS: Enoxaparin Sodium 40 MG/0.4 ML SYRINGE SC SCH (09:00)
--- NOTE | 2019-08-26 09:12 | PRG ---
DATE OF SERVICE: 08/26/2019 SUBJECTIVE: This morning, he is better, awake, alert, and responsive. Denies any pain or discomfort. Status post pacemaker. Status post influenza A. OBJECTIVE: VITAL SIGNS: His vital signs are stable with a temperature 97, pulse 79, respirations 17, saturations 93% on room air, and blood pressure 130/63. CHEST: Decreased breath sounds. No wheezing. CARDIAC: Normal S1 and S2. No gallops. ABDOMEN: No masses. ASSESSMENT: 1. Pacemaker for sick sinus syndrome. 2. Day 4 Tamiflu for influenza A. PLAN: Disposition as per Cardiology. He has a total of five days of Tamiflu. Pulmonary will follow at a distance. Call if needed. Job ID: [id number]
--- NOTE | 2019-08-26 10:37 | PDOC.HOSPP ---
- Subjective Encounter Date: 08/26/19 Encounter Time: 10:36 Subjective: Mr. Moise was seen today in follow-up of sick sinus syndrome. He does not have any complaints. - Objective Vital Signs & Weight: Vital Signs (12 hours) Temp Pulse Resp BP BP Pulse Ox 08/26/19 07:32 93 L 08/26/19 07:31 97.8 F 79 17 135/63 93 L 08/26/19 03:13 97.6 F 66 20 132/65 98 08/25/19 23:43 96 Weight Weight 191 lb 6.4 oz Most Recent Monitor Data Heart Rate from ECG 87 NIBP 115/60 NIBP BP-Mean 78 Respiration from ECG 25 SpO2 92 I&O: 08/25/19 08/26/19 08/27/19 06:59 06:59 06:59 Intake Total 200 Output Total 650 Balance -450 Result Diagrams: 08/23/19 03:29 08/25/19 07:53 Hospitalist ROS - Medication Medications: Active Medications Generic Name Dose Route Start Last Admin Trade Name Freq PRN Reason Stop Dose Admin Acetaminophen 650 mg 08/22/19 19:46 08/24/19 20:23 Tylenol PO 650 mg Q4H PRN Administration Headache/Fever/Mild Pain (1-3) Acetaminophen/Codeine Phosphate 2 tab 08/24/19 13:36 08/25/19 08:56 Tylenol #3 PO 2 tab Q4H PRN Administration Moderate Pain (4-6) Albuterol/Ipratropium 3 ml 08/25/19 13:00 08/25/19 23:43 Duoneb NEB 3 ml Q8ED-RN CARLO Administration Atorvastatin Calcium 10 mg 08/24/19 21:00 08/25/19 21:19 Lipitor PO 10 mg HS CARLO Administration Ezetimibe 10 mg 08/24/19 21:00 08/25/19 21:19 Zetia PO 10 mg QPM CARLO Administration Enoxaparin Sodium 40 mg 08/23/19 09:00 08/26/19 09:00 Lovenox SC 40 mg 0900 CARLO Administration Famotidine 20 mg 08/22/19 21:00 08/26/19 08:59 Pepcid PO 20 mg BID CARLO Administration Gabapentin 300 mg 08/24/19 21:00 08/25/19 21:19 Neurontin PO 300 mg QPM CARLO Administration Guaifenesin/Dextromethorphan 15 ml 08/22/19 19:46 08/22/19 22:30 Robitussin Dm PO 15 ml Q4H PRN Administration Cough Melatonin 3 mg 08/23/19 21:00 08/25/19 21:20 Melatonin PO 3 mg HS CARLO Administration Metoprolol Succinate 25 mg 08/25/19 09:00 08/26/19 08:59 Toprol Xl PO 25 mg DAILY CARLO Administration Oseltamivir Phosphate 75 mg 08/22/19 21:00 08/26/19 09:00 Tamiflu PO 08/27/19 09:01 75 mg BID CARLO Administration Sodium Chloride 10 ml 08/22/19 21:00 08/26/19 09:00 Flush - Normal Saline IVF 10 ml Q12HR CARLO Administration - Exam Eye: PERRL Heart: RRR, no murmur, murmur present, II/IV Respiratory: CTAB, no wheezes, no rales, no ronchi, normal chest expansion, no tachypnea, normal percussion Gastrointestinal: soft, non-tender, non-distended, normal bowel sounds, no palpable masses Extremities: no cyanosis, no edema Hosp A/P (1) Influenza A Code(s): J10.1 - FLU DUE TO OTH IDENT INFLUENZA VIRUS W OTH RESP MANIFEST Status: Acute (2) Acute respiratory failure with hypoxia Code(s): J96.01 - ACUTE RESPIRATORY FAILURE WITH HYPOXIA Status: Acute (3) Atrial fibrillation Code(s): I48.91 - UNSPECIFIED ATRIAL FIBRILLATION Status: Acute (4) Hypertension Code(s): I10 - ESSENTIAL (PRIMARY) HYPERTENSION Status: Acute (5) Aortic stenosis Code(s): I35.0 - NONRHEUMATIC AORTIC (VALVE) STENOSIS Status: Acute - Plan * Acute respiratory failure due to influenza A- continue Tamiflu * AFIB with sick sinus syndrome- s/p pacemaker * HTN- blood pressure is stable * Home today
--- NOTE | 2019-08-26 10:43 | PRG ---
DATE OF SERVICE: 08/26/2019 SUBJECTIVE: Mr. Moise is doing better and wishes to go home. OBJECTIVE: VITAL SIGNS: His blood pressure 135/63, pulse 80 and it is regular. LUNGS: Clear. CARDIAC: Normal S1, normal S2. ASSESSMENT: 1. Tachycardia-bradycardia syndrome with severe pauses, some atrial flutter-fibrillation and some probable atrial flutter, now resolved. 2. Influenza. 3. Aortic stenosis. PLAN: 1. He is going to go home on Cardizem CD 180 mg a day. 2. Metoprolol 25 mg a day. 3. Eliquis 5 mg twice a day, start on Thursday, wait a couple of days before starting that drug in view of the recent pacemaker insertion. If he is not having any more fibrillation in a couple of days, we may want to stop the Eliquis after that. Mostly, it seemed to be associated with his influenza. See us in the office in a couple of weeks. Job ID: [id number]
[2019-08-26 11:17] VITALS: BP 142/65; TEMP 98.9
--- NOTE | 2019-08-26 19:21 | DIS ---
DATE OF ADMISSION: 08/22/2019 DATE OF DISCHARGE: 08/26/2019 DISCHARGE DISPOSITION: Home. DISCHARGE DIAGNOSES: 1. Influenza A. 2. Acute respiratory failure secondary to influenza A. 3. Atrial fibrillation with sick sinus syndrome. 4. Status post pacemaker placement. 5. Moderate aortic stenosis. 6. Hypertension. DISCHARGE MEDICATIONS: Include; 1. Tamiflu 75 mg p.o. twice a day for one additional day. 2. Metoprolol XL 25 mg daily. 3. Albuterol nebs q.6 as needed. 4. Cardizem CD 180 mg p.o. daily. 5. Eliquis 5 mg twice a day. 6. Livalo 2 mg q.p.m. 7. Multivitamin with iron once daily. 8. Gabapentin 300 mg q.p.m. 9. Zetia 10 mg daily. 10. Vitamin D3 of 1000 units daily. PROCEDURES DONE DURING ADMISSION: The patient had a pacemaker placed and had a dual-chamber pacemaker insertion. CODE STATUS: Again, full code. ALLERGIES: NO KNOWN DRUG ALLERGIES. HOSPITAL COURSE: Mr. Moise is a pleasant 74-year-old gentleman, who presented to the emergency room with fevers, chills as well as cough and body aches. Influenza screen in the ER demonstrated influenza A. However, after being admitted to the hospital, he was noted to have episodes of initially atrial fibrillation with rapid ventricular response. He was started on a Cardizem drip and then developed bradycardia with long pauses. The Cardizem drip was stopped. However, the patient continued to have long pauses and episodes of significant bradycardia. Cardiology was consulted and he underwent urgent dual-chamber pacemaker placement. He tolerated the procedure. He had an uneventful postoperative course. The patient was also placed on Cardizem as well as metoprolol for control of his heart rate and Eliquis for CVA prevention. He was able to be discharged home in stable condition with a controlled heart rate. He is to follow up with his primary care physician in 1 week and also with Dr. Bhakta as recommended. Job ID: [id number]
[2019-08-28] MEDS ORDERED: Apixaban 5 MG TAB PO SCH (09:00)
--- NOTE | 2019-08-29 00:06 | EKG ---
Test Reason : Blood Pressure : / mmHG Vent. Rate : 083 BPM Atrial Rate : 083 BPM P-R Int : 126 ms QRS Dur : 146 ms QT Int : 400 ms P-R-T Axes : 070 -80 036 degrees QTc Int : 470 ms Normal sinus rhythm Right bundle branch block Left anterior fascicular block Bifascicular block Abnormal ECG When compared with ECG of 22-AUG-2019 17:18, (Unconfirmed) Premature supraventricular complexes are no longer Present Confirmed by Annamaria NOLAN ([id number]) on 08/29/2019 12:05:36 AM Referred By: AN Confirmed By:Annamaria NOLAN
--- NOTE | 2019-08-29 10:13 | PQF ---
DORIAN POWERS TONI MD [id number] CLINICAL DOCUMENTATION CLARIFICATION FORM: POST DISCHARGE Addendum to original discharge summary date: ____ Late entry note date: __ DATE:08/29/2019 ATTN:ERNESTO DEE MD Please exercise your independent, professional judgment in responding to the clarification form. Clinical indicators are provided on the bottom of this form for your review Please check appropriate box(s) to clarify if the following diagnosis has been ruled in or ruled out: Sepsis [ X] Ruled in diagnosis [ X] Continue to treat [ ] Resolved [ ] Ruled out diagnosis [ ] Cannot rule out diagnosis [ ] Other diagnosis [ ] Unable to determine In addition, please specify: Present on Admission (POA): [X ] Yes [ ] No [ ] Unable to determine For continuity of documentation, please document condition throughout progress notes and discharge summary. Thank You. CLINICAL INDICATORS - SIGNS / SYMPTOMS / LABS Fever-Documented in ED on 08/22 by Manish Stevens Pulse-102, [id number] in ED on 08/22 by Manish Stevens Tachycardic-Documented in ED on 08/22 by Manish Stevens Pneumonia-Documented in ED on 08/22 by Manish Stevens Acute metabolic encephalopathy mild likely due to the flu fever and sepsis - Documented in H&P on 08/22 by Solomon Andrade MD Acute respiratory failure secondary to influenza A-Documented in Discharge summary on 08/26 by Ernesto Dee RISK FACTORS Pneumonia-Documented in ED on 08/22 by Manish Stevens Acute respiratory failure secondary to influenza A-Documented in Discharge summary on 08/26 by Ernesto Dee TREATMENTS We will monitor for worsening or improvement with treatment-Documented in H&P on 08/22 by Solomon Andrade MD Ancef 1gm-Documented in medication snapshot Rocephin 2 gm -Documented in medication snapshot SAP Peritoneal Dialysis Registered Nurse [employer] Winform Viewer (This form is maintained as a part of the permanent medical record) 2014 [employer]. All Rights Reserved [email or web address]
--- NOTE | 2019-08-30 21:04 | EKG ---
Test Reason : STAT Blood Pressure : / mmHG Vent. Rate : 135 BPM Atrial Rate : 077 BPM P-R Int : 000 ms QRS Dur : 132 ms QT Int : 352 ms P-R-T Axes : 000 263 044 degrees QTc Int : 528 ms Wide QRS tachycardia Right bundle branch block Septal infarct , age undetermined Abnormal ECG When compared with ECG of 22-AUG-2019 17:18, (Unconfirmed) Wide QRS tachycardia has replaced Sinus rhythm Confirmed by Annamaria NOLAN ([id number]) on 08/30/2019 9:04:09 PM Referred By: MARIE CHAPA Confirmed By:Annamaria NOLAN
--- NOTE | 2019-08-30 21:04 | EKG ---
Test Reason : Blood Pressure : / mmHG Vent. Rate : 113 BPM Atrial Rate : 120 BPM P-R Int : 000 ms QRS Dur : 148 ms QT Int : 382 ms P-R-T Axes : 000 267 032 degrees QTc Int : 523 ms Atrial fibrillation with rapid ventricular response Right bundle branch block Abnormal ECG When compared with ECG of 23-AUG-2019 00:22, (Unconfirmed) Atrial fibrillation has replaced Wide QRS tachycardia Confirmed by Annamaria NOLAN ([id number]) on 08/30/2019 9:04:16 PM Referred By: EDUARD Confirmed By:Annamaria NOLAN
== END 2019-08-26 11:59 | disposition home or self-care (01) | DRG 853 ==
LOC: ERS 16:29 → T4-B 19:33 → CCU 08-23 01:18 → 2NO 08-24 22:01
PROVIDERS: ADMIT Emergency Medicine; ATTEND Emergency Medicine
PROC: 0JH606Z Insertion of Pacemaker, Dual Chamber into Chest Subcutaneous Tissue and Fascia, Open Approach (ICD-10-PCS; principal; 2019-08-23)
PROC: 02H63JZ Insertion of Pacemaker Lead into Right Atrium, Percutaneous Approach (ICD-10-PCS; 2019-08-23)
PROC: 02HK3JZ Insertion of Pacemaker Lead into Right Ventricle, Percutaneous Approach (ICD-10-PCS; 2019-08-23)
DX: A41.89 Other specified sepsis (principal); G93.41 Metabolic encephalopathy; J96.01 Acute respiratory failure with hypoxia; I47.1 Supraventricular tachycardia; I49.5 Sick sinus syndrome; I35.0 Nonrheumatic aortic (valve) stenosis; I10 Essential (primary) hypertension; I48.91 Unspecified atrial fibrillation; E78.5 Hyperlipidemia, unspecified; E86.0 Dehydration; J10.1 Influenza due to other identified influenza virus with other respiratory manifestations; F17.200 Nicotine dependence, unspecified, uncomplicated; F10.10 Alcohol abuse, uncomplicated; I95.2 Hypotension due to drugs; T46.1X5A Adverse effect of calcium-channel blockers, initial encounter; Z82.49 Family history of ischemic heart disease and other diseases of the circulatory system; Z83.6 Family history of other diseases of the respiratory system; Z98.890 Other specified postprocedural states
CPT/HCPCS: 33208; 36415; 71045; 80048; 80053; 81003; 81015; 82550; 82553; 82805; 83605; 83735; 83880; 84100; 84484; 85025; 87040; 93005; 93010; 93798; 94640; 94660; 96365; 96367; 99152; 99214; C1769; C1785; C1898; G0463; J0456; J0690; J0696; J1580; J1650; J1940; J2250; J3010; J3475; J3490; J7620

== ENCOUNTER 2019-12-09 10:03 | Outpatient (CLI) | payer MEDICARE, BC ==
--- NOTE | 2019-12-09 13:43 | RAD ---
THREE VIEWS OF THE CERVICAL SPINE: 12/09/19 INDICATION: History of neck pain; patient had twisted his back and neck in July with persistent pain. FINDINGS: On the lateral projection, cervical spine is evaluated at C6. Cervicothoracic junction is normal appe aring on the swimmer's lateral projection. Spinal alignment appears within normal limits. There is mi ld disc degenerative disease seen at C3-4, C4-5, and C5-6. There is mild to moderate facet osteoarthr osis of C4-5 and C5-6. There are vascular calcifications involving the right carotid bulb. There are vascular clips within the left anterolateral soft tissues of the neck. Lung apices are clear. There i s partial visualization of dual lead AICD. IMPRESSION: Mild cervical spondylosis. No acute fracture. POS: [facility]
== END 2019-12-09 10:04 | disposition home or self-care (01) ==
LOC: BICRAD 10:03
PROVIDERS: ATTEND Family Medicine
DX: M54.2 Cervicalgia (principal); M47.812 Spondylosis without myelopathy or radiculopathy, cervical region
CPT/HCPCS: 72040; 80053; 80061; G0103; 36415

== ENCOUNTER 2020-01-05 11:10 | Outpatient (CLI) | payer MEDICARE, BC ==
--- NOTE | 2020-01-05 16:58 | CT ---
CT CHEST WITHOUT CONTRAST PULMONARY LUNG SCAN: 01/05/20 HISTORY: Tobacco use, nicotine dependence. COMPARISON: Pulmonary lung scan 09/01/18. FINDINGS: Lung screening specific (lung-RADS): The small area of linear scar in the lingula is unchanged. No new suspicious pulmonary nodule. Simila r appearance to the 3 mm pulmonary nodule posterior aspect right upper lobe axial image 31. Mild biap ical pleural scarring. Potentially significant incidental (lung-RADS category S): Negative. Pulmonary incidentals: There is mild background centrilobular emphysema. Low grade bronchiectasis in the lower lobes. Scatte red subpleural and intraparenchymal micronodules. Other incidentals: Moderate vascular calcifications. Reactive mediastinal lymph nodes. There is a hypodensity exophytic intrapolar right kidney. Thoracic spine is intact. Sternum and manubrium are intact. IMPRESSION: 1. Lung RADS category 2: Benign appearance or behavior. Recommend screening CT in one year. 2. Lung RADS category S: Negative. No new or unknown potentially significant incidental findings requiring urgent additional evaluation. POS: [facility]
== END 2020-01-05 11:11 | disposition home or self-care (01) ==
LOC: BICCT 11:10
PROVIDERS: ATTEND Family Medicine
DX: Z12.2 Encounter for screening for malignant neoplasm of respiratory organs (principal); F17.210 Nicotine dependence, cigarettes, uncomplicated
CPT/HCPCS: G0297

== ENCOUNTER 2020-01-13 11:24 | Outpatient (CLI) | payer MEDICARE, BC ==
--- NOTE | 2020-01-13 12:41 | MRI ---
MRI CERVICAL SPINE WITHOUT CONTRAST: INDICATION: Neck pain. FINDINGS: The cervical vertebrae maintain normal height and alignment. The disk spaces are preserved. Vertebr al bodies exhibit normal signal. Minimal disk bulge at C3-4, C4-5, and C5-6 levels. The changes at these levels minimally efface the anterior subarachnoid space. There is no cord compression. There is no evidence of central canal st enosis. There is evidence of mild left foraminal narrowing at C4-5 due to facet and uncinate hypertrophy. Po ssible mild left foraminal narrowing at C5-6. The foramen at the other levels appears patent. The c ervical cord signal is normal. IMPRESSION: No evidence of significant disk bulge or disk protrusion of any of the visualized levels. Mild effac ement of the anterior subarachnoid space without central canal stenosis. Evidence of mild foraminal stenosis as described above. POS: [facility]
== END 2020-01-13 11:25 | disposition home or self-care (01) ==
LOC: MRI 11:24
PROVIDERS: ATTEND Family Medicine
DX: M54.2 Cervicalgia (principal); M48.02 Spinal stenosis, cervical region; G96.19 Other disorders of meninges, not elsewhere classified
CPT/HCPCS: 72141

== ENCOUNTER 2021-01-24 10:50 | Outpatient (CLI) | payer MEDICARE, BC | END 2021-01-24 10:51 | disposition home or self-care (01) | LOC: BICCT 10:50 | PROVIDERS: ATTEND Family Medicine | DX: Z12.2 Encounter for screening for malignant neoplasm of respiratory organs (principal); F17.210 Nicotine dependence, cigarettes, uncomplicated | CPT/HCPCS: 71271 ==

== ENCOUNTER 2021-07-12 10:46 | Outpatient (CLI) | payer MEDICARE, BC | END 2021-07-12 10:47 | disposition home or self-care (01) | LOC: BICRAD 10:46 | PROVIDERS: ATTEND Family Medicine | DX: J40 Bronchitis, not specified as acute or chronic (principal) | CPT/HCPCS: 71046 ==

== ENCOUNTER 2022-01-31 10:36 | Outpatient (CLI) | payer MEDICARE, BC | END 2022-01-31 10:37 | disposition home or self-care (01) | LOC: BICCT 10:36 | PROVIDERS: ATTEND Family Medicine | DX: Z12.2 Encounter for screening for malignant neoplasm of respiratory organs (principal); F17.210 Nicotine dependence, cigarettes, uncomplicated; I70.0 Atherosclerosis of aorta; K44.9 Diaphragmatic hernia without obstruction or gangrene; N28.9 Disorder of kidney and ureter, unspecified | CPT/HCPCS: 71271 ==

== ENCOUNTER 2022-02-10 12:18 | Outpatient (CLI) | payer MEDICARE, BC | END 2022-02-10 12:19 | disposition home or self-care (01) | LOC: BICULT 12:18 | PROVIDERS: ATTEND Family Medicine | DX: N28.1 Cyst of kidney, acquired (principal) | CPT/HCPCS: 76770 ==

== ENCOUNTER 2022-04-18 07:18 | Outpatient (CLI) | payer MEDICARE, BC ==
[2022-04-18] MEDS ORDERED: Iopamidol 370 76% 100 ML VIAL ONE (09:00)
== END 2022-04-18 07:19 | disposition home or self-care (01) ==
LOC: CT 07:18
PROVIDERS: ATTEND Internal Medicine Cardiovascular Disease
DX: I65.23 Occlusion and stenosis of bilateral carotid arteries (principal)
CPT/HCPCS: 70498; 82565; Q9967

== ENCOUNTER 2022-05-09 12:56 | Outpatient (CLI) | payer MEDICARE, BC ==
[2022-05-09 13:51] LABS: Hemoglobin 13.5 g/dL (13.5-17.5); Mean Corpuscular HGB CONC 34.2 g/dL (32.0-36.0); Mean Corpuscular Volume 96.6 fl (81.2-95.1); Mean Platelet Volume 10.9 fl (7.4-10.4); Platelet Count 210 10x3/uL (150-450); RBC Distribution Width 11.7 % (11.5-14.5); Red Blood Cell (RBC) Count 4.09 10x6/uL (4.32-5.72); White Blood Cell (WBC) Count 9.6 10x3/uL (3.5-10.5)
[2022-05-09 14:04] LABS: Anion Gap 15 mmol/L (10-20); BUN (Urea Nitrogen) 16 mg/dL (8.4-25.7); Calc. Creatinine Clearance 0 mL/min (70-130); Calcium 9.5 mg/dL (7.8-10.44); Carbon Dioxide 23 mmol/L (23-31); Chloride 107 mmol/L (98-107); Estimated GFR 71; Glucose 103 mg/dL (83-110); Potassium 4.4 mmol/L (3.5-5.1); Sodium 141 mmol/L (136-145)
== END 2022-05-09 12:57 | disposition home or self-care (01) ==
LOC: LABBT 12:56
PROVIDERS: ATTEND Thoracic Surgery (Cardiothoracic Vascular Surgery)
DX: Z01.812 Encounter for preprocedural laboratory examination (principal); I65.8 Occlusion and stenosis of other precerebral arteries
CPT/HCPCS: 80048; 85027

== ENCOUNTER 2022-05-09 14:00 | Inpatient (IN) | payer MEDICARE, BC ==
[2022-05-12] MEDS ORDERED: Protamine Sulfate 50 MG/5 ML VIAL ONE (06:37)
[2022-05-12] MEDS ORDERED: Protamine Sulfate 250 MG/25 ML VIAL ONE (06:37)
[2022-05-12] MEDS ORDERED: Bupivacaine 0.25% HCL 30 ML VIAL ONE (06:37)
[2022-05-12] MEDS ORDERED: EPINEPHrine 1 MG/ML AMP ONE (06:37)
[2022-05-12] MEDS ORDERED: Heparin 5,000 UNITS/ML VIAL ONE (06:37)
[2022-05-12] MEDS ORDERED: Fentanyl 100 MCG/2 ML VIAL ONE ×2 (07:03→12:05)
[2022-05-12] MEDS ORDERED: Lidocaine 2% PF 5 ML VIAL ONE (07:04)
[2022-05-12] MEDS ORDERED: Sodium Chloride 0.9% 100 ML ONE (07:17)
[2022-05-12] MEDS ORDERED: cefOXitin 2 GM VIAL ONE (07:17)
[2022-05-12] MEDS ORDERED: CEFAZOLIN 1 GM VIAL ONE (07:17)
[2022-05-12] MEDS ORDERED: CEFAZOLIN 2 GM VIAL ONE (07:18)
[2022-05-12] MEDS ORDERED: Rocuronium Bromide 10 MG/ML (10ML VIAL) ONE (10:11)
[2022-05-12] MEDS ORDERED: Dexamethasone 20 MG/5 ML VIAL ONE (10:11)
[2022-05-12] MEDS ORDERED: Ondansetron PF 4 MG/2 ML Vial ONE (10:11)
[2022-05-12] MEDS ORDERED: PROPOFOL 200 MG/20 ML VIAL ONE (10:11)
[2022-05-12] MEDS ORDERED: NEOSTIGMINE 3 MG/3 ML SYR 3 MG/3 ML SYRINGE ONE (10:11)
[2022-05-12] MEDS ORDERED: Glycopyrrolate 0.2 MG/ML 5 ML SYRINGE ONE (10:11)
[2022-05-12] MEDS ORDERED: hydrALAZINE 20 MG/ML VIAL SLOW IVP PRN (11:19)
[2022-05-12] MEDS ORDERED: Ondansetron PF 4 MG/2 ML Vial IVP PRN (11:19)
[2022-05-12] MEDS ORDERED: niCARdipine 25 MG in Sodium Chloride 0.9% 250 ML 250 ML IVPB PRN (11:19)
[2022-05-12] MEDS ORDERED: Morphine 2 MG/ML VIAL SLOW IVP PRN (11:19)
[2022-05-12] MEDS ORDERED: traMADol HCl 50 MG TAB PO PRN ×2 (11:19)
[2022-05-12] MEDS ORDERED: NOREPINEPHRINE 8 MG/250 ML-D5W 250 ML IVPB PRN (11:19)
[2022-05-12] MEDS: CEFAZOLIN 2 GM in Sodium Chloride 0.9% 100 ML IVPB SCH ×2 (12:54→22:15)
[2022-05-12] MEDS: Sodium Chloride 0.9% 1,000 ML IV SCH ×2 (12:55→21:08)
[2022-05-12 12:58] VITALS: BMI 30.6
[2022-05-12] MEDS: Acetaminophen 325 MG TAB PO PRN (14:52)
[2022-05-12] MEDS ORDERED: Non-Formulary Item 1 EACH (Pitavastatin Calcium 2 MG Tab) PO SCH (21:00)
[2022-05-12] MEDS ORDERED: Simvastatin 10 MG TAB PO SCH (21:00)
[2022-05-13] MEDS: CEFAZOLIN 2 GM in Sodium Chloride 0.9% 100 ML IVPB SCH (05:07)
[2022-05-13 05:08] VITALS: BP 146/56
[2022-05-13] MEDS: Sodium Chloride 0.9% 1,000 ML IV SCH (05:11)
[2022-05-13] MEDS: Acetaminophen 325 MG TAB PO PRN (06:22)
[2022-05-13 08:37] VITALS: TEMP 98.6
[2022-05-13] MEDS ORDERED: Metoprolol Tartrate 50 MG TAB PO SCH (09:00)
== END 2022-05-13 10:23 | disposition home or self-care (01) | DRG 39 ==
LOC: SURG A 05-12 06:02 → CCU 05-12 12:46
PROVIDERS: ADMIT Thoracic Surgery (Cardiothoracic Vascular Surgery); ATTEND Thoracic Surgery (Cardiothoracic Vascular Surgery)
PROC: 03CH0ZZ Extirpation of Matter from Right Common Carotid Artery, Open Approach (ICD-10-PCS; principal; 2022-05-12)
PROC: 03UH0KZ Supplement Right Common Carotid Artery with Nonautologous Tissue Substitute, Open Approach (ICD-10-PCS; 2022-05-12)
DX: I65.21 Occlusion and stenosis of right carotid artery (principal); K08.89 Other specified disorders of teeth and supporting structures; I35.0 Nonrheumatic aortic (valve) stenosis; F17.210 Nicotine dependence, cigarettes, uncomplicated; I48.0 Paroxysmal atrial fibrillation; I10 Essential (primary) hypertension; E78.00 Pure hypercholesterolemia, unspecified; I65.8 Occlusion and stenosis of other precerebral arteries; Z95.0 Presence of cardiac pacemaker; Z79.899 Other long term (current) drug therapy; Z79.01 Long term (current) use of anticoagulants; Z79.82 Long term (current) use of aspirin; Z83.6 Family history of other diseases of the respiratory system; Z80.9 Family history of malignant neoplasm, unspecified; Z88.8 Allergy status to other drugs, medicaments and biological substances
CPT/HCPCS: 94640; C1768; J0171; J0360; J0690; J0694; J1100; J1642; J1644; J2001; J2270; J2405; J2704; J2720; J3010; J3490; J7050; J7620; S0020

== ENCOUNTER 2022-12-05 12:17 | Outpatient (CLI) | payer MEDICARE, BC | END 2022-12-05 12:18 | disposition home or self-care (01) | LOC: ULT 12:17 | PROVIDERS: ATTEND Internal Medicine Cardiovascular Disease | DX: I45.10 Unspecified right bundle-branch block (principal); I51.7 Cardiomegaly | CPT/HCPCS: 93306 ==

== ENCOUNTER 2023-01-29 12:19 | Outpatient (CLI) | payer MEDICARE, BC | END 2023-01-29 12:20 | disposition home or self-care (01) | LOC: CT 12:19 | PROVIDERS: ATTEND Thoracic Surgery (Cardiothoracic Vascular Surgery) | DX: I65.8 Occlusion and stenosis of other precerebral arteries (principal); I72.3 Aneurysm of iliac artery; E27.9 Disorder of adrenal gland, unspecified; N28.1 Cyst of kidney, acquired; K44.9 Diaphragmatic hernia without obstruction or gangrene; T18.9XXA Foreign body of alimentary tract, part unspecified, initial encounter | CPT/HCPCS: 75635 ==

== ENCOUNTER 2023-04-02 13:55 | Outpatient (CLI) | payer MEDICARE, BC | END 2023-04-02 13:56 | disposition home or self-care (01) | LOC: RAD 13:55 | PROVIDERS: ATTEND Family Medicine | DX: G89.29 Other chronic pain (principal) | CPT/HCPCS: 71045 ==

== ENCOUNTER 2023-04-06 10:14 | Outpatient (CLI) | payer MEDICARE, BC | END 2023-04-06 10:15 | disposition home or self-care (01) | LOC: MRI 10:14 | PROVIDERS: ATTEND Family Medicine | DX: M51.16 Intervertebral disc disorders with radiculopathy, lumbar region (principal); M48.062 Spinal stenosis, lumbar region with neurogenic claudication; M48.07 Spinal stenosis, lumbosacral region | CPT/HCPCS: 72148 ==